=== PATIENT | male | born 1955 | race Caucasian/White ===

== ENCOUNTER → 2016-06-14 | Outpatient (CLI) | payer OTHER ==
[~2016-06-14] MED LIST: ALPR-475 PO; ASPI-496 PO; ATOR20TA9 PO; CARV12.52 PO; CARV6.252 PO; CYAN100028 PO; DABI150C PO; DIGO125T PO; DIGO125T10 PO; DIGO250T PO; DONE5TAB7 PO; EMPA10TA PO; HYDR-3240 PO; LISI-167 PO; LISI40TA PO; METF500T4 PO; OMEP-110 PO; OMNIPAQUE 350 MG/ML, 150 ML BOTTLE ONE; SITA50TA PO; SOTA120T26 PO; SOTA80TA18 PO; ZOLP-413 PO
== END | disposition home or self-care (01) ==
LOC: CFH 12:41
PROVIDERS: ATTEND Internal Medicine Cardiovascular Disease
DX: I25.10 Atherosclerotic heart disease of native coronary artery without angina pectoris (principal); I48.91 Unspecified atrial fibrillation
CPT/HCPCS: 75572; 82565; Q9967

== ENCOUNTER 2016-06-15 06:46 | Observation (INO) | payer OTHER ==
[2016-06-14 13:54] VITALS: BP 137/91
[2016-06-14 14:36] LABS: HEMOGLOBIN 16.3 g/dL (13.7-18.0)
[2016-06-14 14:46] LABS: BLOOD UREA NITROGEN 21 mg/dL (7-18)
[2016-06-14 14:49] LABS: ASPARTATE AMINO TRANSFERASE 28 U/L (15-37)
[~2016-06-15] VITALS: Ht 185.4 cm; Wt 91.6 kg
[~2016-06-15 06:46] MED LIST changes: -HYDR-3240 PO; -OMNIPAQUE 350 MG/ML, 150 ML BOTTLE ONE
[2016-06-15] MEDS ORDERED: SODIUM CHLORIDE 0.9% 1,000 ML IV SCH (06:59)
[2016-06-15] MEDS ORDERED: SODIUM CHLORIDE 0.9% 1,000 ML IV ONE (07:00)
[2016-06-15] MEDS ORDERED: FENTANYL PF 250 MCG/5ML ONE (07:35)
[2016-06-15] MEDS ORDERED: MIDAZOLAM 1 MG/ML, 5ML ONE (07:37)
[2016-06-15] MEDS ORDERED: BUPIVACAINE 0.25% ONE ×2 (08:08→08:57)
[2016-06-15] MEDS ORDERED: PROTAMINE SULFATE 10 MG/ML, 5ML ONE (08:08)
[2016-06-15] MEDS ORDERED: HEPARIN 1,000 UNITS/ML, 10ML ONE (08:08)
[2016-06-15] MEDS ORDERED: ROCURONIUM 10 MG/ML ONE (08:19)
[2016-06-15] MEDS ORDERED: PROPOFOL 10 MG/ML, 20ML ONE (08:19)
[2016-06-15] MEDS ORDERED: PROPOFOL 10 MG/ML, 50ML ONE (08:19)
[2016-06-15] MEDS ORDERED: DEXAMETHASONE 4 MG/ML, 5ML ONE (08:19)
[2016-06-15] MEDS ORDERED: SUCCINYLCHOLINE 20 MG/ML, 10ML ONE (08:19)
[2016-06-15] MEDS ORDERED: ONDANSETRON 2MG/ML, 2ML ONE (08:19)
[2016-06-15] MEDS ORDERED: PHENYLEPHRINE 10 MG/ML ONE (08:19)
[2016-06-15] MEDS ORDERED: ZOLPIDEM 5MG TABLET PO PRN (11:00)
[2016-06-15] MEDS ORDERED: HYDROmorphone 1 MG/ML, 1ML IV PRN (12:00)
[2016-06-15] MEDS ORDERED: PROMETHAZINE 25 MG/ML, 1ML IV PRN (12:00)
[2016-06-15] MEDS ORDERED: hydrALAzine 20 MG/ML, 1ML IV PRN (12:00)
[2016-06-15] MEDS ORDERED: MIDAZOLAM 1 MG/ML, 2ML IV PRN (12:00)
[2016-06-15] MEDS ORDERED: ONDANSETRON 2MG/ML, 2ML IVPush PRN (12:00)
[2016-06-15] MEDS ORDERED: ACETAMINOPHEN 325 MG TABLET PO PRN ×2 (12:00→15:30)
[2016-06-15] MEDS ORDERED: MEPERIDINE/PF 25MG/0.5ML IVPush PRN (12:00)
[2016-06-15] MEDS ORDERED: ALBUTEROL SULFATE 2.5 MG/3 ML NPPB PRN (12:00)
[2016-06-15] MEDS ORDERED: FENTANYL PF 100 MCG/2ML IV PRN (12:00)
[2016-06-15] MEDS ORDERED: LABETALOL 5MG/ML, 20ML IV PRN (12:00)
[2016-06-15] MEDS ORDERED: OXYcodone 5 MG/5 ML ORAL.SOL UDC PO PRN (12:00)
[2016-06-15 13:02] VITALS: BP 131/75
[2016-06-15] MEDS ORDERED: ACETAMINOPHEN 325 MG TABLET ONE (15:06)
[2016-06-15] MEDS ORDERED: HYDROcodone/APAP 5/325 TABLET PO PRN (15:30)
[2016-06-15] MEDS: metFORMIN 500 MG TABLET PO SCH (17:37)
[2016-06-15 20:00] VITALS: BP 134/81
[2016-06-15] MEDS ORDERED: SODIUM CHLORIDE FLUSH 10ML SYR IVF SCH (21:00)
[2016-06-15] MEDS ORDERED: ATORVASTATIN 20 MG TABLET PO SCH (21:00)
[2016-06-15] MEDS: DABIGATRAN 150 MG CAPSULE PO SCH (21:44)
[2016-06-15] MEDS: SOTALOL 120MG TABLET PO SCH (21:45)
[2016-06-16 02:00] VITALS: BP 111/63
[2016-06-16 06:47] VITALS: BP 116/69
[2016-06-16] MEDS ORDERED: DIGOXIN 0.125 MG TABLET PO SCH (09:00)
[2016-06-16] MEDS ORDERED: CYANOCOBALAMIN 1,000 MCG TABLET PO SCH (09:00)
[2016-06-16] MEDS ORDERED: LISINOPRIL 10 MG TABLET PO SCH (09:00)
[2016-06-16] MEDS ORDERED: [UNRECOGNIZED DRUG - OTHER] HOMEMEDPO SCH (09:00)
[2016-06-16] MEDS ORDERED: OMEPRAZOLE 20 MG CAPSULE.DR PO SCH (09:00)
[2016-06-16] MEDS ORDERED: EMPAGLIFLOZIN HOMEMEDPO SCH (09:00)
[2016-06-16] MEDS: SOTALOL 120MG TABLET PO SCH (09:14)
[2016-06-16] MEDS: metFORMIN 500 MG TABLET PO SCH (09:15)
[2016-06-16] MEDS: DABIGATRAN 150 MG CAPSULE PO SCH (09:15)
[2016-06-16] MEDS ORDERED: KETOROLAC 30 MG/1 ML IVPush ONE (09:30)
[2016-06-16] MEDS ORDERED: FLU VACC QS2016-17 (36MOS+)UP/PF 0.5 ML IM-VACC ONE (13:30)
[2016-06-16] MEDS ORDERED: HYDR-3240 PO (13:51)
== END 2016-06-16 14:08 | disposition home or self-care (01) ==
LOC: CACL 06:46 → ORIP 10:55 → 5SO 12:48 → DCLOUNGE 06-16 13:48
PROVIDERS: ADMIT Internal Medicine Cardiovascular Disease; ATTEND Internal Medicine Cardiovascular Disease
DX: I48.91 Unspecified atrial fibrillation (principal); E78.2 Mixed hyperlipidemia; I42.9 Cardiomyopathy, unspecified; I10 Essential (primary) hypertension
CPT/HCPCS: 36415; 71020; 80053; 82962; 85025; 85347; 85610; 85730; 93308; 93312; 93325; 93613; 93656; 93662; 96374; C1730; C1732; C1759; C1766; C1893; C1894; G0378; J0330; J1100; J1644; J1885; J2250; J2370; J2405; J2704; J2720; J3010; J3490; Q9967

== ENCOUNTER 2016-08-26 19:22 | Emergency (ER) | payer OTHER ==
[~2016-08-26] VITALS: Ht 185.4 cm; Wt 97.0 kg
[~2016-08-26 19:22] MED LIST changes: +HYDR-3240 PO
[2016-08-26 19:39] VITALS: BP 118/76
[2016-08-26] MEDS ORDERED: DIPH,PERTUSS(ACELL),TET VAC/PF 0.5 ML IM-VACC ONE ×2 (19:56→20:00)
[2016-08-26] MEDS ORDERED: LIDOCAINE 1%, 20ML ONE (19:56)
[2016-08-26] MEDS ORDERED: LIDOCAINE 1%, 20ML SQ ONE (20:00)
[2016-08-26] MEDS ORDERED: TAMS0.4C2 PO (20:04)
[2016-08-26] MEDS ORDERED: BACITRACIN ZINC OINT 500U/GM, 0.9 GM ONE (20:53)
== END 2016-08-26 21:03 | disposition home or self-care (01) ==
LOC: ED 19:39
DX: S61.312A Laceration without foreign body of right middle finger with damage to nail, initial encounter (principal); E11.9 Type 2 diabetes mellitus without complications; I10 Essential (primary) hypertension; X50.9XXA Other and unspecified overexertion or strenuous movements or postures, initial encounter; Y93.89 Activity, other specified; Y92.009 Unspecified place in unspecified non-institutional (private) residence as the place of occurrence of the external cause; Y99.8 Other external cause status
CPT/HCPCS: 11750; 11760; 90471; 90715

== ENCOUNTER 2016-10-15 16:37 | Emergency (ER) | payer OTHER ==
[~2016-10-15] VITALS: Ht 185.4 cm; Wt 100.3 kg
[~2016-10-15 16:37] MED LIST changes: +TAMS0.4C2 PO
[2016-10-15 17:58] LABS: BLOOD UREA NITROGEN 23 mg/dL (7-18)
[2016-10-15 18:00] LABS: ASPARTATE AMINO TRANSFERASE 27 U/L (15-37)
[2016-10-15 19:22] VITALS: BP 129/81
== END 2016-10-15 19:59 | disposition home or self-care (01) ==
LOC: ED 18:11
DX: R10.31 Right lower quadrant pain (principal); I10 Essential (primary) hypertension; E11.9 Type 2 diabetes mellitus without complications; Z88.8 Allergy status to other drugs, medicaments and biological substances
CPT/HCPCS: 36415; 74176; 80053; 81003; 85025

== ENCOUNTER 2017-03-16 14:17 | Emergency (ER) | payer OTHER ==
[~2017-03-16] VITALS: Ht 185.4 cm; Wt 100.0 kg
[2017-03-16] MEDS ORDERED: SODIUM CHLORIDE 0.9% 1,000ML IVBOLUS ONE (16:00)
[2017-03-16 16:18] LABS: HEMATOCRIT 51.7 % (39.2-51.8); HEMOGLOBIN 17.4 g/dL (13.7-18.0); WHITE BLOOD COUNT 5.9 x10^3/uL (3.4-10)
[2017-03-16 16:27] LABS: BLOOD UREA NITROGEN 22 mg/dL (7-18)
[2017-03-16 16:38] LABS: ASPARTATE AMINO TRANSFERASE 16 U/L (15-37)
[2017-03-16 17:21] VITALS: BP 104/65
== END 2017-03-16 18:24 | disposition home or self-care (01) ==
LOC: ED 18:18
DX: I48.2 Chronic atrial fibrillation (principal); R00.2 Palpitations; I11.0 Hypertensive heart disease with heart failure; I50.9 Heart failure, unspecified; E11.9 Type 2 diabetes mellitus without complications; E78.5 Hyperlipidemia, unspecified
CPT/HCPCS: 36415; 80053; 83735; 84443; 85025; 85610; 93005; 96360; 99285; J7030

== ENCOUNTER → 2018-04-12 | Outpatient (CLI) | payer OTHER ==
[~2018-04-12] MED LIST changes: +ATOR20TA37 PO; -ATOR20TA9 PO; +METF500T17 PO; -METF500T4 PO
== END | disposition home or self-care (01) ==
LOC: CFH 13:32
PROVIDERS: ATTEND Internal Medicine Cardiovascular Disease
DX: I37.1 Nonrheumatic pulmonary valve insufficiency (principal); E11.9 Type 2 diabetes mellitus without complications; I11.9 Hypertensive heart disease without heart failure; E78.5 Hyperlipidemia, unspecified
CPT/HCPCS: 93306

== ENCOUNTER → 2019-06-20 | Outpatient (CLI) | payer OTHER ==
[~2019-06-20] MED LIST changes: -ALPR-475 PO; +ALPR0.5T7 PO; -DIGO125T PO; +DIGO125T85 PO; -DIGO250T PO; +DIGO250T3 PO
== END | disposition home or self-care (01) ==
LOC: CVU 10:48
PROVIDERS: ATTEND Internal Medicine Cardiovascular Disease
DX: I42.9 Cardiomyopathy, unspecified (principal)
CPT/HCPCS: 93306

== ENCOUNTER 2019-07-11 00:59 | Observation (INO) | payer OTHER ==
[~2019-07-11] VITALS: Ht 185.4 cm; Wt 105.0 kg
[2019-07-11] MEDS ORDERED: SODIUM CHLORIDE FLUSH 10ML SYR IVF ONE (01:30)
[2019-07-11] MEDS ORDERED: ONDANSETRON 2MG/ML, 2ML IVPush ONE (01:30)
[2019-07-11 01:31] LABS: BASOPHILS # (AUTO) 0.02 x10^3/uL (0-0.1); BASOPHILS % (AUTO) 0 % (0-1); EOSINOPHILS # (AUTO) 0.29 x10^3/uL (0-0.4); EOSINOPHILS % (AUTO) 5 % (1-7); LYMPHOCYTES # (AUTO) 1.53 x10^3/uL (1-3.4); LYMPHOCYTES % (AUTO) 24 % (22-44); MD NO; MEAN CORPUSCULAR HEMOGLOBIN 29.3 pg (27.5-34.5); MEAN CORPUSCULAR HGB CONC 32.8 g/dL (33.2-36.2); MEAN CORPUSCULAR VOLUME 89.4 fL (81-97); MEAN PLATELET VOLUME 7.4 fL (7.4-10.4); MONOCYTES # (AUTO) 0.54 x10^3/uL (0.2-0.8); MONOCYTES % (AUTO) 8 % (2-9); NEUTROPHILS # (AUTO) 4.11 x10^3/uL (1.8-6.8); NEUTROPHILS % (AUTO) 63 % (42-75); PLATELET COUNT 152 x10^3/uL (130-400); RED BLOOD COUNT 5.58 x10^6/uL (4.38-5.82); RED CELL DISTRIBUTION WIDTH 14.3 % (9.4-14.8)
[2019-07-11] MEDS ORDERED: ONDANSETRON 2MG/ML, 2ML ONE ×2 (01:34→16:03)
[2019-07-11] MEDS ORDERED: MORPHINE SULFATE 4 MG/ML, 1ML ONE ×2 (01:35→02:16)
[2019-07-11] MEDS: MORPHINE SULFATE 4 MG/ML, 1ML IVPush PRN ×2 (01:36→02:19)
--- NOTE | 2019-07-11 01:41 | NUR ---
PT MEDICATED PER MAR, PIV STARTED, US AT BEDSIDE AT THIS TIME
[2019-07-11 01:42] LABS: ALANINE AMINOTRANSFERASE 39 U/L (12-78); ANION GAP 5 mmol/L (5-15); CALCIUM 9.1 mg/dL (8.5-10.1); CHLORIDE 108 mmol/L (98-107); CREATININE 1.11 mg/dL (0.7-1.3)
--- NOTE | 2019-07-11 01:42 | NUR ---
THIS IS A 63Y M THAT COMES IN TONIGHT FROM HOME W/ C/O CP SINCE 1900 TONIGHT. PT STS HE FEELS LIKE ITS MORE OF A HEART BURN SO HE TRIED OTC MEDS PRIOR TO ARRIVING TONIGHT WITH NO HELP. PT HAS HX OF AFIB AND CARDIOVERSIONS BUT THE CP IS NEW. PT AT BEDSIDE. PT CONNECTED TO ALL MONITORING.
[2019-07-11 01:46] LABS: ALKALINE PHOSPHATASE 44 U/L (45-117); BILIRUBIN,TOTAL 0.7 mg/dL (0.2-1.0); TOTAL PROTEIN 7.4 g/dL (6.4-8.2); TROPONIN I < 0.015 ng/mL (0.000-0.045)
--- NOTE | 2019-07-11 02:37 | NUR ---
ALL RESULTS BACK CHART UP FOR RECHECK
[2019-07-11] MEDS ORDERED: LISI40TA PO (02:55)
[2019-07-11] MEDS ORDERED: ROSU5TAB PO (02:55)
[2019-07-11] MEDS ORDERED: EXEN2AUT IJ (02:59)
[2019-07-11] MEDS ORDERED: CHOL10003 PO (02:59)
[2019-07-11] MEDS ORDERED: UBID1CAP3 PO (02:59)
[2019-07-11] MEDS ORDERED: ASPI-496 PO (02:59)
--- NOTE | 2019-07-11 02:59 | NUR ---
BREAK RN: PT RESTING. VSS. MED REC COMPLETE. ADMITTING MD AT BEDSIDE
[2019-07-11] MEDS ORDERED: ONDANSETRON 2MG/ML, 2ML IVPush PRN (03:30)
[2019-07-11] MEDS ORDERED: ACETAMINOPHEN 325 MG TABLET PO PRN ×2 (03:30→15:30)
[2019-07-11 03:44] VITALS: BP_SYST 136; BP_SYST 142; BP_DIAS 100; BP_DIAS 88
[2019-07-11] MEDS: morphine SULFATE 10 MG/ML, 1ML IVPush PRN ×4 (04:48→22:42)
[2019-07-11] MEDS: INSULIN LISPRO 100 UNITS/ML, PEN SQ-INSULIN SCH ×4 (07:00→20:48)
[2019-07-11 07:13] VITALS: BP 113/76
[2019-07-11] MEDS: CHOLECALCIFEROL 1,000 UNIT TABLET PO SCH (09:02)
[2019-07-11] MEDS: SOTALOL 120MG TABLET PO SCH ×2 (09:02→20:47)
[2019-07-11] MEDS: LISINOPRIL 40 MG TABLET PO SCH (09:02)
[2019-07-11] MEDS: ASPIRIN 81 MG TABLET EC PO SCH (09:02)
[2019-07-11] MEDS: TAMSULOSIN 0.4 MG CAP.ER.24H PO SCH (09:02)
[2019-07-11] MEDS: OMEPRAZOLE 20 MG CAPSULE.DR PO SCH (09:02)
[2019-07-11] MEDS: UBIDECARENONE PO SCH (09:09)
[2019-07-11] MEDS: VITAMIN E PO SCH (09:09)
[2019-07-11] MEDS: LACTATED RINGERS 1,000 ML IV SCH (09:09)
[2019-07-11] MEDS: Empagliflozin (Jardiance) 10 MG) PO SCH (09:09)
[2019-07-11 13:57] VITALS: BP 105/68
[2019-07-11] MEDS ORDERED: CHLORHEXIDINE 15 ML UDC MM STA (14:26)
[2019-07-11] MEDS ORDERED: BUPIVACAINE/PF-EPI 0.5% 1:200K ONE (14:41)
[2019-07-11] MEDS ORDERED: MIDAZOLAM 1 MG/ML, 2ML ONE (14:57)
[2019-07-11] MEDS ORDERED: FENTANYL PF 250 MCG/5ML ONE (14:57)
[2019-07-11] MEDS ORDERED: SUGAMMADEX 200 MG/2 ML IVPush ONE (15:14)
[2019-07-11] MEDS ORDERED: PROMETHAZINE 12.5 MG SUPP PR PRN (15:30)
[2019-07-11] MEDS ORDERED: LABETALOL 5MG/ML, 20ML IV PRN (15:30)
[2019-07-11] MEDS ORDERED: hydrALAzine 20 MG/ML, 1ML IV PRN (15:30)
[2019-07-11] MEDS ORDERED: ONDANSETRON ODT 8 MG PO PRN (15:30)
[2019-07-11] MEDS ORDERED: PROMETHAZINE 25 MG SUPP PR PRN (15:30)
[2019-07-11] MEDS ORDERED: HYDROmorphone 2 MG/ML, 1ML IVPush PRN (15:30)
[2019-07-11] MEDS ORDERED: ONDANSETRON 2MG/ML, 2ML IV PRN (15:30)
[2019-07-11] MEDS ORDERED: LORazepam 2 MG/ML, 1ML IVPush PRN (15:30)
[2019-07-11] MEDS ORDERED: FENTANYL PF 100 MCG/2ML IV PRN (15:30)
[2019-07-11] MEDS ORDERED: PROMETHAZINE 25 MG/ML, 1ML IV PRN (15:30)
[2019-07-11] MEDS ORDERED: OXYcodone 5 MG/5 ML ORAL.SOL UDC PO PRN (15:30)
[2019-07-11] MEDS ORDERED: PROPOFOL 10 MG/ML, 20ML ONE (16:03)
[2019-07-11] MEDS ORDERED: DEXAMETHASONE 4 MG/ML, 1ML ONE (16:03)
[2019-07-11] MEDS ORDERED: GLYCOPYRROLATE 0.2MG/1ML, 5ML ONE (16:03)
[2019-07-11] MEDS ORDERED: SUCCINYLCHOLINE 20 MG/ML, 10ML ONE (16:03)
[2019-07-11] MEDS ORDERED: NEOSTIGMINE 1 MG/ML, 10ML ONE (16:03)
[2019-07-11] MEDS ORDERED: ROCURONIUM 10MG/ML,5ML ONE (16:03)
[2019-07-11] MEDS ORDERED: CEFAZOLIN 1,000 MG ONE (16:03)
[2019-07-11] MEDS ORDERED: OXYcodone 5 MG/5 ML ORAL.SOL UDC ONE (16:34)
[2019-07-11] MEDS ORDERED: FENTANYL PF 100 MCG/2ML ONE (16:34)
[2019-07-11 18:58] VITALS: BP 123/85
[2019-07-11] MEDS ORDERED: ATORVASTATIN 20 MG TABLET PO SCH (21:00)
[2019-07-12 01:13] VITALS: BP 148/95
[2019-07-12] MEDS: LACTATED RINGERS 1,000 ML IV SCH (02:41)
[2019-07-12] MEDS: morphine SULFATE 10 MG/ML, 1ML IVPush PRN (02:41)
[2019-07-12 04:49] LABS: ALANINE AMINOTRANSFERASE 45 U/L (12-78); ALBUMIN 3.5 g/dL (3.4-5.0); ANION GAP 5 mmol/L (5-15); CALCIUM 8.8 mg/dL (8.5-10.1); CHLORIDE 107 mmol/L (98-107); CREATININE 0.88 mg/dL (0.7-1.3)
[2019-07-12 04:52] LABS: ALKALINE PHOSPHATASE 39 U/L (45-117); BILIRUBIN,TOTAL 1.2 mg/dL (0.2-1.0); TOTAL PROTEIN 6.8 g/dL (6.4-8.2)
[2019-07-12 04:58] LABS: BASOPHILS # (AUTO) 0.01 x10^3/uL (0-0.1); BASOPHILS % (AUTO) 0 % (0-1); EOSINOPHILS % (AUTO) 0 % (1-7); LYMPHOCYTES # (AUTO) 0.37 x10^3/uL (1-3.4); LYMPHOCYTES % (AUTO) 5 % (22-44); MD NO; MEAN CORPUSCULAR HEMOGLOBIN 29.5 pg (27.5-34.5); MEAN CORPUSCULAR HGB CONC 33.1 g/dL (33.2-36.2); MEAN CORPUSCULAR VOLUME 89.3 fL (81-97); MEAN PLATELET VOLUME 7.8 fL (7.4-10.4); MONOCYTES # (AUTO) 0.46 x10^3/uL (0.2-0.8); MONOCYTES % (AUTO) 5 % (2-9); NEUTROPHILS # (AUTO) 7.56 x10^3/uL (1.8-6.8); NEUTROPHILS % (AUTO) 90 % (42-75); PLATELET COUNT 140 x10^3/uL (130-400); RED BLOOD COUNT 5.37 x10^6/uL (4.38-5.82)
[2019-07-12] MEDS: INSULIN LISPRO 100 UNITS/ML, PEN SQ-INSULIN SCH (07:00)
[2019-07-12 07:02] VITALS: BP 130/73
[2019-07-12] MEDS: CHOLECALCIFEROL 1,000 UNIT TABLET PO SCH (09:24)
[2019-07-12] MEDS: OMEPRAZOLE 20 MG CAPSULE.DR PO SCH (09:24)
[2019-07-12] MEDS: ASPIRIN 81 MG TABLET EC PO SCH (09:24)
[2019-07-12] MEDS: SOTALOL 120MG TABLET PO SCH (09:24)
[2019-07-12] MEDS: LISINOPRIL 40 MG TABLET PO SCH (09:24)
[2019-07-12] MEDS: TAMSULOSIN 0.4 MG CAP.ER.24H PO SCH (09:24)
[2019-07-12] MEDS: UBIDECARENONE PO SCH (09:25)
[2019-07-12] MEDS: VITAMIN E PO SCH (09:25)
[2019-07-12] MEDS: Empagliflozin (Jardiance) 10 MG) PO SCH (09:25)
[2019-07-12] MEDS ORDERED: ACET325T26 PO (09:31)
[2019-07-12] MEDS ORDERED: OXYC5TAB3 PO (09:31)
[2019-07-12] MEDS ORDERED: IBUP-1221 PO (09:31)
[2019-07-12] MEDS ORDERED: SENN-129 PO (09:31)
[2019-07-12] MEDS ORDERED: OXYC5CAP2 PO (10:02)
== END 2019-07-12 10:50 | disposition home or self-care (01) ==
LOC: ED 01:26 → INTOOBSV 02:51 → EDIP 02:51 → 3N 03:40
PROVIDERS: ATTEND Hospitalist
DX: K80.01 Calculus of gallbladder with acute cholecystitis with obstruction (principal); E11.9 Type 2 diabetes mellitus without complications; E78.00 Pure hypercholesterolemia, unspecified; E78.5 Hyperlipidemia, unspecified; I11.0 Hypertensive heart disease with heart failure; K21.9 Gastro-esophageal reflux disease without esophagitis; I48.91 Unspecified atrial fibrillation; I50.9 Heart failure, unspecified; N28.1 Cyst of kidney, acquired; N40.0 Benign prostatic hyperplasia without lower urinary tract symptoms; Z79.4 Long term (current) use of insulin
CPT/HCPCS: 36415; 47562; 71045; 76700; 78226; 80053; 82962; 83690; 84484; 85025; 88304; 93005; 96374; 96375; 96376; 99285; A9537; C1729; G0378; J0330; J0690; J1100; J2250; J2270; J2405; J2704; J2710; J3010; J7120

== ENCOUNTER 2019-07-21 12:47 | Observation (INO) | payer OTHER ==
[~2019-07-21] VITALS: Ht 185.4 cm; Wt 101.2 kg
[~2019-07-21 12:47] MED LIST changes: +ACET325T26 PO; +CHOL10003 PO; +EXEN2AUT IJ; +IBUP-1221 PO; +OXYC5CAP2 PO; +OXYC5TAB3 PO; +ROSU5TAB PO; +SENN-129 PO; +UBID1CAP3 PO
[2019-07-21 13:36] LABS: BASOPHILS # (AUTO) 0.03 x10^3/uL (0-0.1); BASOPHILS % (AUTO) 1 % (0-1); EOSINOPHILS # (AUTO) 0.33 x10^3/uL (0-0.4); EOSINOPHILS % (AUTO) 6 % (1-7); LYMPHOCYTES # (AUTO) 0.97 x10^3/uL (1-3.4); LYMPHOCYTES % (AUTO) 17 % (22-44); MD NO; MEAN CORPUSCULAR HEMOGLOBIN 29.5 pg (27.5-34.5); MEAN CORPUSCULAR VOLUME 89.3 fL (81-97); MONOCYTES # (AUTO) 0.37 x10^3/uL (0.2-0.8); MONOCYTES % (AUTO) 7 % (2-9); NEUTROPHILS # (AUTO) 3.96 x10^3/uL (1.8-6.8); NEUTROPHILS % (AUTO) 70 % (42-75); PLATELET COUNT 189 x10^3/uL (130-400); RED BLOOD COUNT 5.44 x10^6/uL (4.38-5.82)
[2019-07-21 13:48] LABS: ALANINE AMINOTRANSFERASE 40 U/L (12-78); ALBUMIN 3.5 g/dL (3.4-5.0); ANION GAP 5 mmol/L (5-15); CALCIUM 9.1 mg/dL (8.5-10.1); CHLORIDE 109 mmol/L (98-107)
[2019-07-21 13:51] LABS: ALKALINE PHOSPHATASE 52 U/L (45-117); BILIRUBIN,TOTAL 0.5 mg/dL (0.2-1.0); CREATININE 0.94 mg/dL (0.7-1.3); TOTAL PROTEIN 7.5 g/dL (6.4-8.2)
--- NOTE | 2019-07-21 14:27 | NUR ---
PARISH NURSE: PT AMBULATORY WITH STEADY GAIT TO ROOM AT THIS TIME.
--- NOTE | 2019-07-21 14:33 | NUR ---
PATIENT ARRIVES WITH NEW ONSET TWITCHES IN BUE/UPPER BODY. STATES IT IS ONGOING ALL DAY FOR THREE DAYS. HE RECENTLY HAD A LAP DOM ON 07/10. PATIENT STATES NO PAIN.
[2019-07-21] MEDS ORDERED: BACLOFEN 10 MG TABLET PO ONE ×2 (16:30→18:00)
--- NOTE | 2019-07-21 17:04 | NUR ---
REQUESTED BACLOFEN FROM PHARMACY, NOT TOCKED HERE.
--- NOTE | 2019-07-21 17:04 | NUR ---
PATIENT TO GO TO MRI AFTER BACLOFEN ADMINISTERED FROM PHARMACY
--- NOTE | 2019-07-21 18:07 | NUR ---
PATIENT CONTINUES TO HAVE TREMORS. MEDICATING WITH BACLOFEN ORDERED TO STOP TREMORS FOR MRI. AT THIS TIME, HIS LAST TREMOR WAS 17:55. AT BEDSIDE.
[2019-07-21] MEDS ORDERED: DIAZEPAM 5 MG TABLET ONE (18:12)
--- NOTE | 2019-07-21 18:17 | NUR ---
PATIENT GOT UP TO BATHROOM. PATIENT CONTINUES TO HAVE SPASMS, TALKED TO MD AND GOT ORDERED VALIUM.
[2019-07-21] MEDS ORDERED: DIAZEPAM 5 MG TABLET PO ONE (18:30)
--- NOTE | 2019-07-21 18:57 | NUR ---
report from igor poole. assuming care at this time.
--- NOTE | 2019-07-21 19:11 | NUR ---
pt resting in room with family at bs. vss. no needs expressed. call light within reach. plan to admit. awaiting room assignment.
[2019-07-21] MEDS ORDERED: ONDANSETRON 2MG/ML, 2ML IVPush PRN (20:30)
[2019-07-21] MEDS ORDERED: DIAZEPAM 5 MG/ML, 2ML IV PRN (20:30)
[2019-07-21] MEDS ORDERED: ACETAMINOPHEN 325 MG TABLET PO PRN (20:30)
[2019-07-21] MEDS ORDERED: BACLOFEN 10 MG TABLET PO PRN (20:30)
--- NOTE | 2019-07-21 20:40 | NUR ---
report to ABBI Fregoso. piv established. pt ready for transport.
[2019-07-21] MEDS ORDERED: ATORVASTATIN 20 MG TABLET PO SCH (21:00)
[2019-07-21 21:10] VITALS: BP 129/77
[2019-07-21 23:28] VITALS: BP 110/70
[2019-07-21] MEDS: SOTALOL 120MG TABLET PO SCH (23:31)
[2019-07-22 00:01] VITALS: BP 118/74
[2019-07-22 04:34] LABS: ANION GAP 5 mmol/L (5-15); CALCIUM 8.8 mg/dL (8.5-10.1); CHLORIDE 109 mmol/L (98-107); CREATININE 0.99 mg/dL (0.7-1.3)
[2019-07-22 07:33] VITALS: BP 113/77
[2019-07-22] MEDS: CHOLECALCIFEROL 1,000 UNIT TABLET PO SCH ×2 (07:59→13:11)
[2019-07-22] MEDS: ASPIRIN 81 MG TABLET EC PO SCH ×2 (07:59→13:11)
[2019-07-22] MEDS: TAMSULOSIN 0.4 MG CAP.ER.24H PO SCH ×2 (07:59→13:16)
[2019-07-22] MEDS: LISINOPRIL 40 MG TABLET PO SCH ×2 (07:59→13:16)
[2019-07-22] MEDS: SOTALOL 120MG TABLET PO SCH ×2 (07:59→13:11)
[2019-07-22] MEDS ORDERED: SENNA/DOCUSATE TABLET PO SCH (09:00)
[2019-07-22] MEDS ORDERED: TEMPLATE NON-FORMULARY MED. (Empagliflozin (Jardiance) 10 MG) PO SCH (09:30)
[2019-07-22] MEDS ORDERED: GLUCAGON 1 MG IM PRN (09:30)
[2019-07-22] MEDS: ENOXAPARIN 40 MG/0.4 ML SQ SCH ×2 (09:30→13:19)
[2019-07-22] MEDS ORDERED: DEXTROSE 4 GM TAB.CHEW PO PRN (09:30)
[2019-07-22] MEDS ORDERED: DEXTROSE 50%, 50ML SYRINGE IVPush PRN (09:30)
[2019-07-22] MEDS ORDERED: MIDAZOLAM 1 MG/ML, 5ML ONE (10:55)
[2019-07-22] MEDS ORDERED: FENTANYL PF 100 MCG/2ML ONE ×2 (10:55)
[2019-07-22] MEDS ORDERED: GADOTERATE 10 MMOL/20 ML SYR ONE (11:40)
[2019-07-22] MEDS: INSULIN LISPRO 100 UNITS/ML, PEN SQ-INSULIN SCH ×2 (12:00→16:50)
[2019-07-22 15:31] VITALS: BP 112/72
[2019-07-22] MEDS ORDERED: BACL-19 PO (16:55)
[2019-07-22] MEDS ORDERED: SODIUM CHLORIDE FLUSH 10ML SYR IVF SCH (21:00)
[2019-07-23] MEDS ORDERED: OMEPRAZOLE 20 MG CAPSULE.DR PO SCH (09:00)
== END 2019-07-22 18:00 | disposition home or self-care (01) ==
LOC: ED 14:41 → INTOOBSV 18:45 → EDIP 18:45 → 3N 21:05
PROVIDERS: ADMIT Family Medicine; ATTEND Internal Medicine
DX: M62.838 Other muscle spasm (principal); I48.20 Chronic atrial fibrillation, unspecified; E78.5 Hyperlipidemia, unspecified; K21.9 Gastro-esophageal reflux disease without esophagitis; E11.9 Type 2 diabetes mellitus without complications; I11.0 Hypertensive heart disease with heart failure; I50.32 Chronic diastolic (congestive) heart failure; N40.0 Benign prostatic hyperplasia without lower urinary tract symptoms; M50.30 Other cervical disc degeneration, unspecified cervical region; G25.3 Myoclonus; E78.00 Pure hypercholesterolemia, unspecified; Z79.82 Long term (current) use of aspirin
CPT/HCPCS: 36415; 70450; 72156; 80048; 80053; 82550; 82962; 83690; 83735; 84100; 84443; 85025; 96372; 96374; 99285; A9575; G0378; J1650; J2250; J3010; J3360

== ENCOUNTER 2020-11-26 07:47 | Outpatient (CLI) | payer MEDICARE, OTHER ==
[~2020-11-26 07:47] MED LIST changes: +BACL-19 PO; +HYDR-2214 PO; -HYDR-3240 PO; -LISI40TA PO; +LISI40TA9 PO; -OXYC5TAB3 PO; +OXYC5TAB98 PO
== END 2020-11-26 23:59 | disposition home or self-care (01) ==
LOC: CFH 07:47
PROVIDERS: ATTEND Internal Medicine Cardiovascular Disease
DX: I08.2 Rheumatic disorders of both aortic and tricuspid valves (principal); I42.9 Cardiomyopathy, unspecified
CPT/HCPCS: 93306; 93356